=== PATIENT | male | born 1995 | race Caucasian/White ===

== ENCOUNTER 2022-07-26 00:42 | Emergency (ER) | payer SELFPAY ==
[2022-07-26] MEDS ORDERED: predniSONE 20 MG TAB ONE (00:57)
[2022-07-26] MEDS ORDERED: Benzonatate 100 MG CAP ONE (01:06)
== END 2022-07-26 01:50 | disposition home or self-care (01) ==
LOC: MADERS 00:42
DX: J06.9 Acute upper respiratory infection, unspecified (principal); F17.210 Nicotine dependence, cigarettes, uncomplicated
CPT/HCPCS: 87081; 87430; 99284; J7512

== ENCOUNTER 2022-08-16 11:50 | Emergency (ER) | payer SELFPAY ==
[2022-08-16] MEDS ORDERED: Cyclobenzaprine 10 MG TAB ONE (12:12)
[2022-08-16] MEDS ORDERED: Ketorolac Tromethamine 60 MG/2 ML VIAL ONE (12:12)
[2022-08-16] MEDS ORDERED: Ibuprofen 800 MG TAB ONE (12:17)
== END 2022-08-16 13:05 | disposition home or self-care (01) ==
LOC: MADERS 11:50
DX: M54.16 Radiculopathy, lumbar region (principal); F17.210 Nicotine dependence, cigarettes, uncomplicated; F17.290 Nicotine dependence, other tobacco product, uncomplicated
CPT/HCPCS: 72100; J1885